=== PATIENT | male | born 1950 | race Caucasian/White ===

== ENCOUNTER 2022-01-03 15:37 | Outpatient (REF) | payer OTHER, SELFPAY ==
--- NOTE | 2022-01-03 14:15 | PAPNONF_PTH ---
PATIENT: Pankaj Rolon LOC: [facility] U#:[id number] AGE/SX: 71/M ROOM: RE01/03/[address]: Ke Dixon MD : 1950 BED: DIS: 01/03/2022 SPEC #: [id number] RECD: 01/04/22 12:58 STATUS: SHERI REYenny #: [id number] [place]: 01/03/22 14:[address]: Ke Dixon DEPT: [facility] Cytology RECD BY: Breanna Kaur ENTERED: 01/04/22 12:58 SP TYPE: TRISHA COTTRELL DR: Kassandra Dhaliwal Tissues: 1 - BODY FLUID CYTO-FINE NEEDLE [facility] Procedures: BODY FLUID CYTO-FINE NEEDLE [facility] Comments: [id number]
== END 2022-01-03 15:38 | disposition home or self-care (01) ==
LOC: LBN 15:37
PROVIDERS: PCP Family Medicine; Visit Provider Otolaryngology
DX: R22.1 Localized swelling, mass and lump, neck (principal)
CPT/HCPCS: 88104

== ENCOUNTER → 2022-03-05 02:02 | Outpatient (CLI) | payer OTHER, SELFPAY ==
--- NOTE | 2022-03-05 08:00 | DI.US_ITS ---
Exam(s) US NEEDLE LOCAL OTHER WO RAD EXAM: US NEEDLE LOCAL OTHER WO RAD CLINICAL HISTORY: Right neck mass, ultrasound guided biopsy,r22.1. COMPARISON: No exams were available for comparison TECHNIQUE: Ultrasound guidance provided for right neck mass FNA. FINDINGS: Ultrasound guidance was provided for right neck mass FNA. Radiologist was not present for this study . Provided images reveal needle in the nodule of concern. IMPRESSION: Ultrasound-guided FNA of right neck mass. DATA REPOSITORY:
--- NOTE | 2022-03-05 14:20 | PAPNONF_PTH ---
PATIENT: Pankaj Rolon LOC: [facility] U#:[id number] AGE/SX: 75/M ROOM: RE03/05/[address]: Ke Dixon MD : 1950 BED: DIS: SPEC #: [id number] RECD: 03/05/22 15:08 STATUS: SHERI REYenny #: [id number] [place]: 03/05/22 14:[address]: Ke Dixon DEPT: [facility] Cytology RECD BY: Marleni Nguyen ENTERED: 03/05/22 15:10 SP TYPE: TRISHA COTTRELL DR: Kassandra Dhaliwal Tissues: 1 - BODY FLUID CYTO-FINE NEEDLE [facility] Procedures: BODY FLUID CYTO-FINE NEEDLE [facility] Comments: [id number] (FNA PATHOLOGY CONSULT)
--- NOTE | 2022-03-05 14:42 | OPPNE_ITS ---
Procedure Note Date of procedure: 03/05/22 Procedure: Ultrasound-guided FNA, right submandibular mass Procedure Diagnosis: Right submandibular triangle mass, in/adjacent to the submandibular gland Procedure Indications: The patient has a right submandibular mass. FNA in the office was nondiagnostic. Options were explained to the patient regarding further management including FNA under ultrasound guidance, versus excision. He wished the former. Consent was filled out and signed prior to the procedure Procedure Description: The patient was positioned in a supine position with his head turned to the l eft. Ultrasound was used to visualize the right submandibular mass which appeared cystic, and extremely thin-walled. There was no associated secondary mass. 1% lidocaine with 1/100,000 epinephrine was injected into the skin and subcutaneous tissues overlying the mass after the patient was prepped and draped in appropriate fashion. A 25-gauge needle was then passed into the mass, sticking to the very edge of the mass trying to grasp some of the capsule. A second pass was then made into the cystic contents and cells, and while the entire cyst could not be aspirated, a substantial sample of mucinous appearing debris was removed. Both specimens were examined under the microscope by pathology, and showed mostly inflammatory cells by their description. A 18- gauge Angiocath was placed into the cyst and aspiration was attempted, unsuccessfully. Sterile dressing was applied after ensuring adequate hemostasis. The patient was able to ambulate afterwards without difficulty and his vital signs remained stable. Specimen was sent to pathology.
== END ==
PROVIDERS: PCP Family Medicine; Visit Provider Otolaryngology
DX: R22.1 Localized swelling, mass and lump, neck (principal); K11.8 Other diseases of salivary glands
CPT/HCPCS: 10005; 76942; 88104